=== PATIENT | male | born 2000 | race Caucasian/White ===

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

== ENCOUNTER 2018-08-21 01:16 | Emergency (ER) | payer BC ==
--- NOTE | 2018-08-21 01:18 | EDPHY ---
H & P Source: Patient, EMS - Personal History Tetanus Vaccine Date: last 10 years - Medical/Surgical History Hx Asthma: No Hx Chronic Respiratory Disease: No Hx Diabetes: No Hx Cardiac Disease: No Hx Renal Disease: No Hx Cirrhosis: No Hx Alcoholism: No Hx HIV/AIDS: No Hx Splenectomy or Spleen Trauma: No Other PMH: seizures following concusion - Social History Smoking Status: Never smoked Time Seen by Provider: 08/21/18 01:18 HPI/ROS: HPI CHIEF COMPLAINT: Alcohol Intoxication HISTORY OF PRESENT ILLNESS: 18-year-old male presents emergency room by EMS for acute alcohol intoxication. 911 was called by friends as he was unresponsive. He arrives to the emergency room alert and oriented however highly intoxicated with alcohol slurring his speech. He is unable to walk appropriately. He reports a large amount of liquor tonight. He denies any medical complaints. No trauma reported. Past Medical History: Significant medical history for seizures on Keppra. Past Surgical History: Unknown Social History: Large amount of alcohol. Family History: Unknown ROS REVIEW OF SYSTEMS: Limited due to alcohol intoxication Exam Constitutional Intoxicated, triage nursing summary reviewed, vital signs reviewed, Sleepy, smells of alcohol Eyes normal conjunctivae and sclera, horizontal beating nystagmus consistent acute alcohol intoxication, otherwise pupils equal and react to light HENT normal inspection, atraumatic, moist mucus membranes, no epistaxis, neck supple/ no meningismus, no raccoon eyes. Respiratory clear to auscultation bilaterally, normal breath sounds, no respiratory distress, no wheezing. Cardiovascular rate normal, regular rhythm, no murmur, no edema, distal pulses normal. Gastrointestinal soft, non-tender, no rebound, no guarding, normal bowel sounds, no distension, no pulsatile mass. Genitourinary no CVA tenderness. Musculoskeletal no midline vertebral tenderness, full range of motion, no calf swelling, no tenderness of extremities, no meningismus, good pulses, neurovascularly intact. Skin pink, warm, & dry, no rash, skin atraumatic. Neurologic sleepy, intoxicated with alcohol,, alert and oriented x 3, AAOx3, moves all 4 extremities equally, motor intact, sensory intact, CN II-XII intact , , normal vision, normal speech. Psychiatric normal mood/affect. Heme/Lymph/Immune no lymphadenopathy. Differential Diagnosis: Includes but is not limited to in a particular order acute alcohol intoxication, alcohol abuse, dehydration, electrolyte abnormality , nausea vomiting from acute alcohol intoxication Medical Decision Making: Plan for this patient IV establishment with blood draw , check serum alcohol level, electrolytes, IV fluids, Zofran as needed, monitor for worsening addition monitor for sobriety. Re-evaluation: Serum alcohol level [id number]: Patient still highly intoxicated this time. Plan for further sobriety. Signed over at 7:[address] Morales. Once patient is more sober he can be safely discharged from the emergency room. (Jimbo Oneil) Constitutional: Initial Vital Signs Temperature (C) 36.6 C 08/21/18 01:35 Heart Rate 90 08/21/18 01:35 Respiratory Rate 16 08/21/18 01:35 Blood Pressure 123/90 H 08/21/18 01:35 O2 Sat (%) 97 08/21/18 01:35 O2 Delivery Mode Room Air Allergies/Adverse Reactions: No Known Allergies Allergy (Unverified 08/21/18 01:29) Home Medications: Medication Instructions Recorded Doxycycline Hyclate 03/23/17 levETIRAcetam [Keppra 500 mg (*)] 500 mg PO BID #30 tab 03/23/17 Medical Decision Making ED Course/Re-evaluation: Patient's care signed out to me at 7:[address] Oneil. I saw the patient at 7:25 a.m.. He sleeping. Stable vital signs 9:30 a.m. Patient is alert ambulatory talkative. Has no complaints. He and I discussed presentation and lab work from last night. He has a sober ride coming for him. (Omar Morales) Differential Diagnosis: Non complicated alcohol intoxication (Omar Morales) - Data Points Laboratory Results: Laboratory Results 08/21/18 01:28 08/21/18 01:25 08/21/18 08/21/18 01:28 01:25 WBC 8.27 10^3/uL 10^3/uL (3.80-9.50) RBC 5.12 10^6/uL 10^6/uL (4.40-6.38) Hgb 15.5 g/dL g/dL (13.7-17.5) Hct 45.6 % % (40.0-51.0) MCV 89.1 fL fL (81.5-99.8) MCH 30.3 pg pg (27.9-34.1) MCHC 34.0 g/dL g/dL (32.4-36.7) RDW 11.9 % % (11.5-15.2) Plt Count 295 10^3/uL 10^3/uL (150-400) MPV 9.2 fL fL (8.7-11.7) Neut % (Auto) 54.7 % % (39.3-74.2) Lymph % (Auto) 36.6 % % (15.0-45.0) [place] % (Auto) 7.4 % % (4.5-13.0) Eos % (Auto) 0.6 % % (0.6-7.6) Baso % (Auto) 0.6 % % (0.3-1.7) Nucleat RBC Rel Count 0.0 % % (0.0-0.2) Absolute Neuts (auto) 4.52 10^3/uL 10^3/uL (1.70-6.50) Absolute Lymphs (auto) 3.03 10^3/uL H 10^3/uL (1.00-3.00) Absolute Monos (auto) 0.61 10^3/uL 10^3/uL (0.30-0.80) Absolute Eos (auto) 0.05 10^3/uL 10^3/uL (0.03-0.40) Absolute Basos (auto) 0.05 10^3/uL 10^3/uL (0.02-0.10) Absolute Nucleated RBC 0.00 10^3/uL 10^3/uL (0-0.01) Immature Gran % 0.1 % % (0.0-1.1) Immature Gran # 0.01 10^3/uL 10^3/uL (0.00-0.10) Sodium 146 mEq/L H mEq/L (135-145) Potassium 4.0 mEq/L mEq/L (3.5-5.2) Chloride 105 mEq/L mEq/L (97-110) Carbon Dioxide 24 mEq/l mEq/l (22-31) Anion Gap 17 mEq/L H mEq/L (6-14) BUN 16 mg/dL mg/dL (7-23) Creatinine 1.1 mg/dL mg/dL (0.7-1.3) Estimated GFR > 60 Glucose 86 mg/dL mg/dL (70-100) Calcium 9.1 mg/dL mg/dL (8.5-10.4) Ethyl Alcohol 364 mg/dL H mg/dL (0-10) Medications Given: Discontinued Medications Sodium Chloride (Ns) 1,000 mls @ 0 mls/hr IV EDNOW ONE; Wide Open PRN Reason: Protocol Stop: 08/21/18 01:28 Last Admin: 08/21/18 01:28 Dose: 1,000 mls Departure - Departure Disposition: Home, Routine, Self-Care Clinical Impression: Alcoholic intoxication Condition: Good Instructions: Alcohol Intoxication (ED), Abuse of Alcohol (ED) Additional Instructions: Drink plenty of fluids today. Water, juice, Gatorade Ibuprofen 600 mg every 6 hr for hangover Return for worsening symptoms Referrals: Patient,NotPresent [Unknown] - As per Instructions [facility] [Outside] - 1 day, if not improved
[2018-08-21] MEDS ORDERED: NS 1,000 ML IV ONE (01:27)
[2018-08-21 01:43] LABS: PLATELET COUNT 295 10^3/uL (150-400)
[2018-08-21 09:54] VITALS: BP 117/69
== END 2018-08-21 10:02 | disposition home or self-care (01) ==
LOC: EDUNIT#
DX: F10.920 Alcohol use, unspecified with intoxication, uncomplicated (principal); E86.9 Volume depletion, unspecified
CPT/HCPCS: G0480